=== PATIENT | male | born 1975 | race Two or more races ===

== ENCOUNTER 2024-04-03 08:48 | Inpatient (IN) | payer MEDICAID ==
[~2024-04-03] VITALS: Ht 162.6 cm; Wt 65.9 kg
[2024-04-03] MEDS: MORPHINE SULFATE 2 MG/ML SYRINGE IVP ONE ×2 (10:49→13:41)
[2024-04-03] MEDS: SODIUM CHLORIDE 0.9% 1,000 ML IV ONE (10:49)
[2024-04-03 10:54] LABS: BASOPHILS % (AUTO) 0.6 % (0.0-2.0); EOSINOPHILS % (AUTO) 0.2 % (1.0-6.0); HEMATOCRIT 40.7 % (41-53); HEMOGLOBIN 13.6 g/dL (13.5-17.5); LYMPHOCYTES # (AUTO) 1.1 K/uL (1.0-4.8); LYMPHOCYTES % (AUTO) 10.5 % (22.0-44.0); MEAN CORPUSCULAR HEMOGLOBIN 29.9 pg (26.0-34.0); MEAN CORPUSCULAR HGB CONC 33.5 G/dL (31.0-37.0); MEAN CORPUSCULAR VOLUME 89 fL (80-100); MONOCYTES # (AUTO) 0.5 K/uL (0.1-1.0); MONOCYTES % (AUTO) 4.6 % (2.0-9.0); NEUTROPHILS # (AUTO) 9.1 K/uL (1.8-7.7); NEUTROPHILS % (AUTO) 84.1 % (40.0-70.0); PLATELET COUNT (AUTO) 284 K/uL (150-450); RED BLOOD CELL COUNT(AUTO) 4.56 MIL/uL (4.50-5.90); RED CELL DISTRIBUTION WIDTH 13.1 % (11.5-14.5); WHITE BLOOD COUNT (AUTO) 10.8 K/uL (4.5-11.0)
[2024-04-03] MEDS ORDERED: SODIUM CHLORIDE 0.9% 100 ML ONE (11:10)
[2024-04-03] MEDS ORDERED: IOHEXOL 350 MG/ML 100 ML VIAL ONE (11:10)
[2024-04-03] MEDS ORDERED: FentaNYL CITRATE PF 100 MCG/2 ML VIAL IVP ONE (12:00)
[2024-04-03] MEDS ORDERED: MIDAZOLAM HCL 2 MG/2 ML VIAL IVP ONE (12:00)
[2024-04-03 12:16] LABS: ANION GAP 12 mmol/L (8-16); CALCIUM, TOTAL 9.1 mg/dL (8.8-10.5); CARBON DIOXIDE 23 mmol/L (22-29); CHLORIDE 102 mmol/L (98-107); CREATININE 0.92 mg/dL (0.60-1.30); GLOMERULAR FILTR. RATE CALC > 60 mL/min (>60); GLUCOSE,RANDOM 96 mg/dL (70-110); POTASSIUM 4.1 mmol/L (3.5-5.1); SODIUM SERUM 137 mmol/L (136-145); UREA NITROGEN, BLOOD 11 mg/dL (7-18)
[2024-04-03] MEDS: PIPERACILLIN/TAZO 3.375 GM/D5W 50 ML IV ONE (12:56)
[2024-04-03 13:10] LABS: APPEARANCE,URINE CLEAR (CLEAR); BILIRUBIN,URINE NEGATIVE (NEGATIVE); COLOR,URINE COLORLESS (YELLOW); GLUCOSE, URINE (UA) NEGATIVE (NEGATIVE); LEUKOCYTE ESTERASE ,URINE NEGATIVE (NEGATIVE); NITRATE,URINE NEGATIVE (NEGATIVE); OCCULT BLOOD,URINE NEGATIVE (NEGATIVE); PH,URINE 6.5 (5.0-8.0); PROTEIN,URINE NEGATIVE (NEGATIVE); SPECIFIC GRAVITIY, URINE 1.008 (1.003-1.030); UROBILINOGEN,URINE <=1.0 mg/dL (<=1.0)
[2024-04-03] MEDS ORDERED: ACETAMINOPHEN 325 MG TABLET PO PRN (14:45)
[2024-04-03] MEDS ORDERED: ONDANSETRON HCL 4 MG/2 ML VIAL IVP PRN (14:45)
[2024-04-03] MEDS: CLINDAMYCIN 600 MG/D5% WATER 50 ML IV SCH (15:00)
[2024-04-03 16:45] VITALS: BP 122/73; PULSE 55; RESP 18; TEMP 98.1; O2SAT 98
[2024-04-03] MEDS: HEPARIN SODIUM,PORCINE 5,000 UNITS/ML VIAL SQ SCH (17:00)
[2024-04-03] MEDS ORDERED: INFLUENZA VIRUS VACCINE TVS (6MO+) 2024-25/PF 45 MCG/0.5 ML SYRINGE IM. ONE (17:30)
[2024-04-03 20:31] VITALS: BP 101/59; PULSE 55; RESP 17; TEMP 98.2; O2SAT 98
[2024-04-03] MEDS: PIPERACILLIN SODIUM/TAZOBACTAM 4.5 GM in DEXTROSE 5%-WATER 100 ML IV SCH (20:32)
[2024-04-03] MEDS: POTASSIUM CHL 20 MEQ/0.45% NS 1,000 ML IV SCH (20:33)
[2024-04-03] MEDS: DOCUSATE SODIUM 100 MG CAPSULE PO SCH (20:33)
[2024-04-04 03:49] VITALS: BP 95/53; PULSE 53; RESP 16; TEMP 98.2; O2SAT 100
[2024-04-04 07:23] LABS: BASOPHILS % (AUTO) 0.5 % (0.0-2.0); EOSINOPHILS % (AUTO) 1.8 % (1.0-6.0); HEMATOCRIT 39.4 % (41-53); HEMOGLOBIN 13.1 g/dL (13.5-17.5); LYMPHOCYTES % (AUTO) 29.1 % (22.0-44.0); MEAN CORPUSCULAR HEMOGLOBIN 29.8 pg (26.0-34.0); MEAN CORPUSCULAR HGB CONC 33.2 G/dL (31.0-37.0); MEAN CORPUSCULAR VOLUME 90 fL (80-100); MONOCYTES # (AUTO) 0.6 K/uL (0.1-1.0); MONOCYTES % (AUTO) 8.5 % (2.0-9.0); NEUTROPHILS # (AUTO) 4.1 K/uL (1.8-7.7); NEUTROPHILS % (AUTO) 60.1 % (40.0-70.0); PLATELET COUNT (AUTO) 281 K/uL (150-450); RED BLOOD CELL COUNT(AUTO) 4.38 MIL/uL (4.50-5.90); RED CELL DISTRIBUTION WIDTH 13.4 % (11.5-14.5); WHITE BLOOD COUNT (AUTO) 6.8 K/uL (4.5-11.0)
[2024-04-04 07:46] LABS: ANION GAP 7 mmol/L (8-16); CARBON DIOXIDE 27 mmol/L (22-29); CHLORIDE 104 mmol/L (98-107); CREATININE 1.11 mg/dL (0.60-1.30); GLOMERULAR FILTR. RATE CALC > 60 mL/min (>60); GLUCOSE,RANDOM 90 mg/dL (70-110); POTASSIUM 4.5 mmol/L (3.5-5.1); SODIUM SERUM 138 mmol/L (136-145); UREA NITROGEN, BLOOD 11 mg/dL (7-18)
[2024-04-04 07:58] VITALS: BP 106/67; PULSE 52; RESP 18; TEMP 98.1; O2SAT 98
[2024-04-04] MEDS ORDERED: RINGERS SOLUTION,LACTATED 1,000 ML IV ONE (10:35)
[2024-04-04] MEDS: ETHYL ALCOHOL 62% ANTISEPTIC NASAL SANITIZER 0.6 ML AMPUL NASAL ONE (10:46)
[2024-04-04] MEDS ORDERED: DEXAMETHASONE SOD PHOS 4 MG/ML VIAL IVP ONE (12:00)
[2024-04-04] MEDS ORDERED: CeFAZolin SODIUM 1 GM VIAL IVP ONE (12:00)
[2024-04-04] MEDS ORDERED: ONDANSETRON HCL 4 MG/2 ML VIAL IVP ONE (12:00)
[2024-04-04] MEDS ORDERED: SUGAMMADEX SODIUM 200 MG/2 ML VIAL IVP ONE (12:00)
[2024-04-04] MEDS ORDERED: LIDOCAINE/PF 2% 5 ML VIAL IM ONE (12:00)
[2024-04-04] MEDS ORDERED: PROPOFOL 1% 20 ML VIAL IVP ONE (12:00)
[2024-04-04] MEDS ORDERED: ROCURONIUM BROMIDE 10 MG/ML 5 ML VIAL IVP ONE (12:00)
[2024-04-04] MEDS ORDERED: 0.9% SODIUM CHLORIDE 10 ML VIAL IVP ONE (12:00)
[2024-04-04] MEDS ORDERED: KETOROLAC TROMETHAMINE 60 MG/2 ML VIAL IM ONE (12:00)
[2024-04-04] MEDS ORDERED: BUPIVACAINE HCL/PF 0.25% 30 ML VIAL ONE (12:38)
[2024-04-04] MEDS: RINGERS SOLUTION,LACTATED 1,000 ML IV ONE (12:46)
[2024-04-04] MEDS ORDERED: MetroNIDAZOLE 500 MG/NACL 100 ML IV ONE (12:47)
[2024-04-04] MEDS ORDERED: FentaNYL CITRATE PF 100 MCG/2 ML VIAL IVP PRN (13:15)
[2024-04-04] MEDS ORDERED: HYDROmorphone HCL 2 MG/ML SYRINGE IVP PRN (13:15)
[2024-04-04] MEDS ORDERED: MEPERIDINE-PF 25 MG/ML VIAL IVP PRN (13:15)
[2024-04-04 15:03] VITALS: BP 108/46; PULSE 52; RESP 18; TEMP 97.2; O2SAT 100
[2024-04-04] MEDS ORDERED: SODIUM CHLORIDE 0.9% 500 ML IV ONE (16:44)
[2024-04-04] MEDS ORDERED: BUPIVACAINE 0.25%/EPI 1:200,000/PF 30 ML VIAL ONE (17:17)
[2024-04-04] MEDS: BUPIVACAINE 0.25%/EPI 1:200,000/PF 30 ML VIAL ONE (17:18)
[2024-04-04] MEDS: OXYGEN THERAPY IH SCH (20:00)
[2024-04-04 20:31] VITALS: BP 101/63; PULSE 65; RESP 18; TEMP 98.3; O2SAT 96
[2024-04-05 05:01] VITALS: BP 116/61; PULSE 58; RESP 16; TEMP 98.1; O2SAT 99
[2024-04-05 07:07] LABS: COVID AG,FIA SOURCE NASAL SWAB
[2024-04-05 07:28] LABS: SARS-COV2 (COVID) ANTIGEN,FIA Negative (Negative)
[2024-04-05 08:27] VITALS: BP 118/54; PULSE 54; RESP 18; TEMP 97.8; O2SAT 97
[2024-04-05] MEDS ORDERED: AMOX-457 PO (09:17)
== END 2024-04-05 17:05 | disposition home or self-care (01) | DRG 254 ==
LOC: EMS 08:48 → EDH 14:37 → 6S 16:19
PROVIDERS: ADMIT Internal Medicine; ATTEND Internal Medicine
PROC: 0JBB0ZZ Excision of Perineum Subcutaneous Tissue and Fascia, Open Approach (ICD-10-PCS; principal; 2024-04-04 13:00)
DX: K61.39 Other ischiorectal abscess (principal); E88.89 Other specified metabolic disorders; R82.4 Acetonuria; Z20.822 Contact with and (suspected) exposure to COVID-19; Z79.899 Other long term (current) drug therapy; Z90.49 Acquired absence of other specified parts of digestive tract
CPT/HCPCS: 74177; 80048; 81003; 83735; 85025; 87040; 87070; 87081; 87205; 88304; 99285; G0378; J0690; J1100; J1644; J1885; J2250; J2270; J2405; J2543; J2704; J3010; J3480; J3490; J7030; J7040; J7050; J7060; J7120